=== PATIENT | female | born 1985 | race Caucasian/White ===

== ENCOUNTER 2025-01-16 15:03 | Emergency (ER) | payer OTHER, MEDICAID ==
[2025-01-16] MEDS: Lidocaine 1% with EPINEPHrine 1:100,000 10 ML MDV INJECT ONE (15:46)
[2025-01-16] MEDS: Bacitracin Oint 1 GM U/D Packet TOP ONE (16:30)
== END 2025-01-16 16:38 | disposition home or self-care (01) ==
LOC: CC.ED 15:03
DX: S62.522B Displaced fracture of distal phalanx of left thumb, initial encounter for open fracture (principal); Z88.0 Allergy status to penicillin; Z91.013 Allergy to seafood; Z79.899 Other long term (current) drug therapy; W23.1XXA Caught, crushed, jammed, or pinched between stationary objects, initial encounter; Y93.89 Activity, other specified; Y99.0 Civilian activity done for income or pay
CPT/HCPCS: 12001; 26755; 73140-FA; 99283-25; J2004